=== PATIENT | male | born 1955 | race Caucasian/White ===

== ENCOUNTER 2017-02-13 05:02 | Emergency (ER) | payer OTHER ==
[~2017-02-13] VITALS: Ht 182.9 cm; Wt 114.9 kg
[2017-02-13 05:06] VITALS: Ht 182.9 cm; Wt 114.9 kg
[2017-02-13] MEDS ORDERED: ONDANSETRON 4 MG INJ IV STA (05:30)
[2017-02-13] MEDS ORDERED: morphine 4 MG/ML VIAL IV STA (05:30)
[2017-02-13 05:51] LABS: URINE BLOOD (Dip) POC 2+ (NEGATIVE)
[2017-02-13 06:03] LABS: BASOPHILS % 0.3 % (0.0-2.0); EOSINOPHILS % 0.1 % (0.0-7.0); HEMATOCRIT 44.6 % (42.0-52.0); HEMOGLOBIN 15.6 g/dl (14.0-18.0); LYMPHOCYTES # 1.2 10^3/ul (0.8-2.9); MEAN CORPUSCULAR HEMOGLOBIN 33.8 pg (29.0-33.0); MEAN CORPUSCULAR VOLUME 96.5 fl (82.0-101.0); MEAN PLATELET VOLUME 11.6 fl (7.4-10.4); MONOCYTE # 1.3 10^3/ul (0.3-0.9); MONOCYTES % 10.2 % (0.0-11.0); NEUTROPHIL # 10.4 10^3/ul (1.6-7.5); NEUTROPHILS % 79.9 % (39.0-77.0); PLATELET COUNT 202 10^3/UL (140-415); RED BLOOD COUNT 4.62 10^6/ul (4.70-6.10); RED CELL DISTRIBUTION WIDTH 12.9 % (11.5-14.5); WHITE BLOOD COUNT 13.1 10^3/ul (4.8-10.8)
[2017-02-13 06:17] LABS: ADD UMIC YES; UR ASCORBIC ACID NEGATIVE (NEGATIVE); UR BILIRUBIN (Dip) NEGATIVE (NEGATIVE); UR BLOOD (Dip) 2+ mg/dL (NEGATIVE); UR CLARITY CLEAR (CLEAR); UR COLOR YELLOW (YELLOW); UR GLUCOSE (Dip) NEGATIVE (NEGATIVE); UR KETONES (Dip) TRACE mg/dL (NEGATIVE); UR LEUKOCYTE ESTERASE (Dip) NEGATIVE Leu/ul (NEGATIVE); UR NITRITE (Dip) NEGATIVE (NEGATIVE); UR RBC 4 /HPF (0-5); UR SPECIFIC GRAVITY (Dip) 1.015 (1.003-1.030); UR TOTAL PROTEIN (Dip) NEGATIVE (NEGATIVE); UR UROBILINOGEN (Dip) NEGATIVE (NEGATIVE)
--- NOTE | 2017-02-13 06:20 | RADRPT ---
PROCEDURE: CT Abdomen and Pelvis without contrast. CLINICAL INDICATION: Abdominal pain. TECHNIQUE: Routine axial tomographic images of the abdomen and pelvis were obtained from the domes of the diaphragm to the symphysis pubis. The patient was scanned withoutoral or intravenous contra st. Coronal and sagittal reformatted images were obtained from the axial source images. Images were reviewed on a high-resolution PACS workstation. The total exam CTDI equals 22.84 mGy and the total exam DLP equals 1654.72 mGy-cm. One or more of the following dose reduction techniques were used: Automated exposure control, adjustment of the mA and / or kV according to patient size, or use of it erative reconstruction technique. DICOM images are available. COMPARISON: None. FINDINGS: The visualized portions of the lung bases demonstrate mild bilateral basilar atelectasis. Evaluat ion of the intra-abdominal solid organs is somewhat limited on this noncontrast examination. The li samantha appears normal in size. The liver parenchyma demonstrates diffuse hypoattenuation. There is no intra or extrahepatic biliary dilatation. The gallbladder is unremarkable by CT criteria. The sple en, pancreas, and adrenal glands are unremarkable. The kidneys are symmetric in size. There are small bilateral renal cysts, the largest arising from the upper pole of the left kidney measuring 1.7 cm in diameter. There is moderate left hydronephrosi s and mild left hydroureter. A 3.4 mm calculus is seen at the left UVJ measuring 560 HU. There is le ft perinephric and periureteral fat stranding and small free fluid in the left retroperitoneum. No a dditional renal, ureteral or bladder calculi are seen. The urinary bladder is grossly unremarkable. The bowel demonstrates normal course and caliber. There is no evidence of bowel obstruction. The a ppendix is not visualized. No intraperitoneal free air or abscess is identified. The pelvic organs are grossly unremarkable. No retroperitoneal, mesenteric, or inguinal lymphadenopathy is identifie d. The aorta is normal in caliber and contains vascular calcifications. The osseous structures demonstrate severe compression fracture of the L3 vertebral body with 4 mm re tropulsion of fracture fragments. There is intervertebral disc space narrowing at L5-S1 with vacuum disc phenomenon. No significant subcutaneous soft tissue abnormalities are seen. IMPRESSION: 1. 3 mm obstructing calculus at the left UVJ with moderate left hydronephrosis and mild left hydrou reter. There is left perinephric and periureteral fat stranding and small free fluid. No additional renal, ureteral or bladder calculi are seen. 2. Small bilateral renal cysts. 3. Hepatic steatosis. 4. Chronic severe compression fracture deformity of the L3 vertebral body with 4 mm retropulsion of fracture fragments. RPTAT: HH .Brenda Anaya MD, MD Date Time Electronically viewed and signed by .Brenda Anaya MD, on 02/13/2017 06:19 .G/
[2017-02-13 06:23] LABS: CALCIUM 9.5 mg/dl (8.4-10.2); CREATININE 2.05 mg/dl (0.61-1.24); POTASSIUM 4.6 mmol/L (3.5-5.1)
[2017-02-13] MEDS ORDERED: HYDROmorphONE 1 MG/ML SYG IV STA (06:47)
[2017-02-13] MEDS ORDERED: KETOROLAC 30 MG INJ IV STA (06:47)
[2017-02-13] MEDS ORDERED: ASPI-664 PO (07:51)
[2017-02-13] MEDS ORDERED: ATOR40TA68 PO (07:51)
[2017-02-13] MEDS ORDERED: ENAL5TAB PO (07:51)
--- NOTE | 2017-02-13 08:49 | CONS ---
Date/Time of Note Date/Time of Note DATE: 02/13/17 TIME: 08:38 Assessment/Plan Assessment/Plan Chief Complaint/Hosp Course 61-year-old male with left flank pain associated with nausea and vomiting. Patient went to [facility] yesterday because of the same problem and was discharged home. However he continued to have pain which was not controlled with oral pain medications so he came in to [facility] emergency room. CT scan of the abdomen and pelvis showed a 3 mm stone at the left ureterovesical junction with left hydronephrosis. His creatinine is elevated. He should be able to pass the stone on his own. If he continues to have pain and his renal function gets worse then we will need to do a cystoscopy and ureteroscopy, laser lithotripsy and remove the stone for him. In the meantime will place him on tamsulosin pain medications strain the urine and do a KUB to see if the stone is radiopaque so we could follow it with KUB Problems: Consultation Date/Type/Reason Admit Date/Time February 13, 2017 Date of Consultation: Feb 13, 2017 Type of Consultation: Urology Reason for Consultation Distal left ureteral stone Referring Provider: LIBBY PAINTER MD Hx of Present Illness 61-year-old male presented to the emergency room with left flank pain associated with nausea and vomiting. He has been to another emergency room yesterday because of the same problem and was sent home . He started having pain again today which was not controlled with oral pain medications. In the emergency room he had a CT scan and that showed a 3 mm stone at the left ureterovesical junction. He denies any prior history of kidney stones Constitutional: no complaints Eyes: no complaints ENT: no complaints Respiratory: no complaints Cardiovascular: no complaints Gastrointestinal: nausea, other (Bloated abdomen), vomiting Genitourinary: other (Slow urinary stream, he does have urgency and urgency incontinence sometime), No dysuria, No hematuria Musculoskeletal: no complaints Skin: no complaints Neurologic: no complaints Endocrine: no complaints Lymphatic: no complaints Past Medical History Medical History: high cholesterol, hypertension Past Surgical History Past Surgical Hx: appendectomy (Left total knee replacement), other (Left total knee) Family History Significant Family History: no pertinent family hx Social History Alcohol Use: occasionally Smoking Status: Never smoker Drug Use: none Exam/Review of Systems Vital Signs Vitals Vital Signs Date Time Temp Pulse Resp B/P Pulse Ox O2 Delivery O2 Flow Rate FiO2 02/13/17 08:10 98.4 83 16 107/59 94 Room Air Exam Constitutional: alert, oriented Psych: no complaints Head: normocephalic Eyes: nl conjunctiva ENMT: nl external ears & nose Neck: supple Respiratory: normal air movement Cardiovascular: nl pulses, No jugular venous distention (JVD) Gastrointestinal: distended, other (Left flank tenderness and left lower quadrant tenderness) Genitourinary - Male: CVA tenderness, nl penis, nl scrotum, other (Rectal exam prostate is soft) Musculoskeletal: nl extremities to inspection Extremities: normal pulses Neurological: nl mental status Skin: nl turgor Results Result Diagram: 02/13/17 0530 02/13/17 0530 Results 24 hrs Laboratory Tests Test 02/13/17 05:30 02/13/17 05:51 White Blood Count 13.1 H Red Blood Count 4.62 L Hemoglobin 15.6 Hematocrit 44.6 Mean Corpuscular Volume 96.5 Mean Corpuscular Hemoglobin 33.8 H Mean Corpuscular Hemoglobin Concent 35.0 Red Cell Distribution Width 12.9 Platelet Count 202 Mean Platelet Volume 11.6 H Neutrophils % 79.9 H Lymphocytes % 9.0 L Monocytes % 10.2 Eosinophils % 0.1 Basophils % 0.3 Nucleated Red Blood Cells % 0.0 Neutrophils # 10.4 H Lymphocytes # 1.2 Monocytes # 1.3 H Eosinophils # 0.0 Basophils # 0.0 Nucleated Red Blood Cells # 0.0 Urine Color YELLOW Urine Clarity CLEAR Urine pH 5.0 Urine Specific [place] 1.015 Urine Ketones TRACE A Urine Nitrite NEGATIVE Urine Bilirubin NEGATIVE Urine Urobilinogen NEGATIVE Urine Leukocyte Esterase NEGATIVE Urine Microscopic RBC 4 Urine Microscopic WBC 3 Urine Hemoglobin 2+ H Urine Glucose NEGATIVE Urine Total Protein NEGATIVE Sodium Level 140 Potassium Level 4.6 Chloride Level 104 Carbon Dioxide Level 22 Anion Gap 19 H Blood Urea Nitrogen 25 H Creatinine 2.05 H Glucose Level 145 Calcium Level 9.5 Bedside Urine pH (LAB) 5.5 Bedside Urine Protein (LAB) Negative Bedside Urine Glucose (UA) Negative Bedside Urine Ketones (LAB) Negative Bedside Urine Blood 2+ H Bedside Urine Nitrite (LAB) Negative Bedside Urine Leukocyte Esterase (L Negative Imaging Free Text/Dictation CT scan of the abdomen and pelvis: 1. 3 mm obstructing calculus at the left UVJ with moderate left hydronephrosis and mild left hydroureter. There is left perinephric and periureteral fat stranding and small free fluid. No additional renal, ureteral or bladder calculi are seen. 2. Small bilateral renal cysts. 3. Hepatic steatosis. 4. Chronic severe compression fracture deformity of the L3 vertebral body with 4 mm retropulsion of fracture fragments. ABIGAIL LO MD Feb 13, 2017 08:48
[2017-02-13 08:59] VITALS: BP 108/61; PULSE 82; RESP 18; TEMP 98
--- NOTE | 2017-02-13 09:06 | ERD ---
ER Documentation Chief Complaint Chief Complaint left flank pain x 2 days. hx of kidney stones HPI Patient is a 61-year-old male with hypertension who presents with flank pain. The patient said that he has had 2 days of flank pain which is worse at night. It comes and goes and is sharp in nature. He was brought in by ambulance. He went to [facility] emergency department 2 days ago was diagnosed with a kidney stone and was given [place] and ibuprofen but is not getting better. His pain got worse and is having vomiting. It is left-sided. Upon review of old medical records this is the patient's first visit to [facility] emergency department. ROS All systems reviewed and are negative except as per history of present illness. Medications Home Meds Reported Medications Atorvastatin* (Atorvastatin*) 40 Mg Tablet, 40 MG PO QHS, #30 TAB 02/13/17 Aspirin* (Aspirin* EC) 81 Mg Tablet.dr, 81 MG PO DAILY, TAB 02/13/17 Enalapril Maleate* (Enalapril Maleate*) 5 Mg Tablet, 5 MG PO DAILY, TAB 02/13/17 Allergies Allergies: Coded Allergies: No Known Drug Allergies (Verified Allergy, Unknown, 02/13/17) PMhx/Soc Hx Cardiac Disorders: Yes (HTN) Hx Miscellaneous Medical Probl: Yes (kidney stones) Hx Alcohol Use: No Hx Substance Use: No Hx Tobacco Use: No Smoking Status: Never smoker FmHx Family History: No diabetes Physical Exam Vitals Vital Signs Date Time Temp Pulse Resp B/P Pulse Ox O2 Delivery O2 Flow Rate FiO2 02/13/17 08:59 98.0 82 18 108/61 94 Room Air 02/13/17 08:10 98.4 83 16 107/59 94 Room Air 02/13/17 05:06 97.0 101 20 147/75 97 Physical Exam Const: Moderate distress secondary to pain Head: Atraumatic Eyes: Normal Conjunctiva ENT: Normal External Ears, Nose and Mouth. Neck: Full range of motion..~ No meningismus. Resp: Clear to auscultation bilaterally Cardio: Regular rate and rhythm, no murmurs Abd: Soft, non tender, non distended. Normal bowel sounds Skin: No petechiae or rashes Back: No midline or flank tenderness Ext: No cyanosis, or edema Neur: Awake and alert Psych: Normal Mood and Affect Result Diagram: 02/13/1752902/13/17529 Results 24 hrs Laboratory Tests Test 02/13/17 05:30 02/13/17 05:51 White Blood Count 13.110^3/ul Red Blood Count 4.6210^6/ul Hemoglobin 15.6g/dl Hematocrit 44.6% Mean Corpuscular Volume 96.5fl Mean Corpuscular Hemoglobin 33.8pg Mean Corpuscular Hemoglobin Concent 35.0g/dl Red Cell Distribution Width 12.9% Platelet Count 13706^3/UL Mean Platelet Volume 11.6fl Neutrophils % 79.9% Lymphocytes % 9.0% Monocytes % 10.2% Eosinophils % 0.1% Basophils % 0.3% Nucleated Red Blood Cells % 0.0/100WBC Neutrophils # 10.410^3/ul Lymphocytes # 1.210^3/ul Monocytes # 1.310^3/ul Eosinophils # 0.010^3/ul Basophils # 0.010^3/ul Nucleated Red Blood Cells # 0.010^3/ul Urine Color YELLOW Urine Clarity CLEAR Urine pH 5.0 Urine Specific [place] 1.015 Urine Ketones TRACEmg/dL Urine Nitrite NEGATIVEmg/dL Urine Bilirubin NEGATIVEmg/dL Urine Urobilinogen NEGATIVEmg/dL Urine Leukocyte Esterase NEGATIVELeu/ul Urine Microscopic RBC 4/HPF Urine Microscopic WBC 3/HPF Urine Hemoglobin 2+mg/dL Urine Glucose NEGATIVEmg/dL Urine Total Protein NEGATIVEmg/dl Sodium Level 140mmol/L Potassium Level 4.6mmol/L Chloride Level 104mmol/L Carbon Dioxide Level 22mmol/L Anion Gap 19 Blood Urea Nitrogen 25mg/dl Creatinine 2.05mg/dl Glucose Level 145mg/dl Calcium Level 9.5mg/dl Bedside Urine pH (LAB) 5.5 Bedside Urine Protein (LAB) Negative Bedside Urine Glucose (UA) Negative Bedside Urine Ketones (LAB) Negative Bedside Urine Blood 2+ Bedside Urine Nitrite (LAB) Negative Bedside Urine Leukocyte Esterase (L Negative Current Medications Medications (Trade) Dose Ordered Sig/Gumaro Route PRN Reason Start Time Stop Time Status Last Admin Dose Admin Morphine Sulfate (morphine) 8 mg ONCE STAT IV 02/13/17 05:30 02/13/17 05:32 DC 02/13/17 06:03 Ondansetron HCl (Zofran Inj) 4 mg ONCE STAT IV 02/13/17 05:30 12/21/17 05:32 DC 02/13/17 06:02 Ketorolac Tromethamine (Toradol) 30 mg ONCE STAT IV 02/13/17 06:47 02/13/17 06:49 DC 02/13/17 07:53 Hydromorphone HCl (Dilaudid) 1 mg ONCE STAT IV 02/13/17 06:47 02/13/17 06:49 DC 02/13/17 07:53 Tamsulosin HCl (Flomax) 0.4 mg 21 PO 02/13/17 21:00 Procedures/MDM CT of the abdomen pelvis shows 3 mm kidney stone with moderate hydronephrosis and mild hydroureter per radiology. Patient is a 61-year-old male who presents with left-sided kidney stone. He has acute renal failure with a creatinine of greater than 2 and no previous creatinine to compare to. I am concerned about renal failure from obstruction. He was seen by Dr. Day from urology in consultation who did recommend admission for treatment. However given the patient's insurance he will need to be transferred to [facility]. We have an accepting physician at that hospital but I spoke with as well who is accepted the patient in transfer. The patient will be transferred by ambulance. He may require lithotripsy and evaluation for acute renal failure. Departure Diagnosis: Primary Impression: ARF (acute renal failure) Acute renal failure type: unspecified Qualified Code: N17.9 - Acute renal failure, unspecified acute renal failure type Additional Impressions: Kidney stone Hydronephrosis Hydronephrosis type: with ureteral calculous obstruction Qualified Code: N13.2 - Hydronephrosis with urinary obstruction due to ureteral calculus Flank pain Condition: LIBBY Sparks MD Feb 13, 2017 09:06
[2017-02-13] MEDS ORDERED: TAMSULOSIN (SR) 0.4 MG CAP PO SCH (21:00)
== END 2017-02-13 09:15 | disposition short-term general hospital (02) ==
LOC: E/R 05:02
DX: N17.9 Acute kidney failure, unspecified (principal); N13.2 Hydronephrosis with renal and ureteral calculous obstruction; I10 Essential (primary) hypertension; Z79.82 Long term (current) use of aspirin
CPT/HCPCS: 36415; 74176; 80048; 81001; 85025; 87086; 96374; 96375; 99285; J1170; J1885; J2270; J2405; 81003